=== PATIENT | male | born 1945 | race Caucasian/White ===

== ENCOUNTER 2017-11-03 04:04 | Emergency (ER) | payer MEDICARE, OTHER ==
[~2017-11-03] VITALS: Ht 175.3 cm; Wt 68.2 kg
[2017-11-03 05:12] VITALS: BP 99/63
== END 2017-11-03 05:18 | disposition home or self-care (01) ==
LOC: EMS 04:09
DX: M16.12 Unilateral primary osteoarthritis, left hip (principal); F17.210 Nicotine dependence, cigarettes, uncomplicated
CPT/HCPCS: 73503; 99284

== ENCOUNTER 2018-01-05 02:16 | Emergency (ER) | payer MEDICARE, OTHER ==
[~2018-01-05] VITALS: Ht 180.3 cm; Wt 56.8 kg
[2018-01-05 03:23] VITALS: BP 114/75
== END 2018-01-05 04:15 | disposition home or self-care (01) ==
LOC: EMS 02:16
DX: S76.011A Strain of muscle, fascia and tendon of right hip, initial encounter (principal); S20.219A Contusion of unspecified front wall of thorax, initial encounter; J44.9 Chronic obstructive pulmonary disease, unspecified; I10 Essential (primary) hypertension; F17.210 Nicotine dependence, cigarettes, uncomplicated; W01.0XXA Fall on same level from slipping, tripping and stumbling without subsequent striking against object, initial encounter; Y93.89 Activity, other specified; Y92.89 Other specified places as the place of occurrence of the external cause; Y99.8 Other external cause status
CPT/HCPCS: 73502; 99284